=== PATIENT | female | born 1990 | race African-American/Black ===

== ENCOUNTER 2020-12-20 09:57 | Outpatient (CLI) | payer OTHER, SELFPAY ==
--- NOTE | ~2020-12-20 | US_ITS ---
US breast RT limited DATE: 12/20/2020 10:20 INDICATION: Right breast lump, increasing with menstrual cycle TECHNIQUE: High-resolution ultrasound imaging targeted to area of clinical complaint at 1:00 3 cm fro m nipple COMPARISON: None FINDINGS: There is a 3 x 6 mm cyst. There is dense stroma. No suspicious mass or suspicious shadowing is evident. IMPRESSION: BI-RADS Category 2: Benign Recommendation: Routine mammographic screening beginning at age 40 Reviewed, dictated and finalized at [facility]. Reviewed, dictated and finalized at [facility].
== END 2020-12-20 09:58 ==
PROVIDERS: Visit Provider Nurse Practitioner
DX: N60.01 Solitary cyst of right breast (principal)
CPT/HCPCS: 76642